=== PATIENT | male | born 1980 | race Caucasian/White ===

== ENCOUNTER 2023-10-08 06:19 | Day surgery (SDC) | payer OTHER, MEDICARE ==
[~2023-10-08] VITALS: Ht 154.9 cm; Wt 52.7 kg
[~2023-10-08 06:19] MED LIST: AMPICILLIN SODIUM 2 GM/NS 0 ML IV ONE; RINGERS SOLUTION,LACTATED 1,000 ML IV ONE
[2023-10-08] MEDS ORDERED: PROPOFOL 1% 20 ML VIAL IVP ONE (06:20)
[2023-10-08] MEDS ORDERED: DEXAMETHASONE SOD PHOS 4 MG/ML VIAL IVP ONE (06:20)
[2023-10-08] MEDS ORDERED: LIDOCAINE/PF 2% 5 ML VIAL IM ONE (06:20)
[2023-10-08] MEDS ORDERED: ONDANSETRON HCL 4 MG/2 ML VIAL IVP ONE (06:20)
[2023-10-08] MEDS ORDERED: ROCURONIUM BROMIDE 10 MG/ML 5 ML VIAL IVP ONE (06:20)
[2023-10-08] MEDS ORDERED: METOCLOPRAMIDE HCL 5 MG/ML 2 ML VIAL IVP ONE (06:20)
[2023-10-08] MEDS ORDERED: SUGAMMADEX SODIUM 200 MG/2 ML VIAL IVP ONE (06:20)
[2023-10-08] MEDS ORDERED: RINGERS SOLUTION,LACTATED 1,000 ML IV ONE (06:30)
[2023-10-08 07:58] LABS: CALCIUM, TOTAL 10.3 mg/dL (8.8-10.5); CREATININE 1.55 mg/dL (0.60-1.30); INR 1.1 (0.9-1.1); PROTHROMBIN TIME 11.1 SEC (9.4-11.6)
[2023-10-08 08:01] LABS: BASOPHILS % (AUTO) 0.1 % (0.0-2.0); EOSINOPHILS % (AUTO) 0 % (1.0-6.0); HEMATOCRIT 45.7 % (41-53); HEMOGLOBIN 15.3 g/dL (13.5-17.5); LYMPHOCYTES # (AUTO) 2.4 K/uL (1.0-4.8); LYMPHOCYTES % (AUTO) 19.8 % (22.0-44.0); MEAN CORPUSCULAR HEMOGLOBIN 30.5 pg (26.0-34.0); MEAN CORPUSCULAR HGB CONC 33.4 G/dL (31.0-37.0); MEAN CORPUSCULAR VOLUME 91 fL (80-100); MONOCYTES # (AUTO) 0.8 K/uL (0.1-1.0); MONOCYTES % (AUTO) 6.8 % (2.0-9.0); NEUTROPHILS # (AUTO) 8.9 K/uL (1.8-7.7); NEUTROPHILS % (AUTO) 73.3 % (40.0-70.0); PLATELET COUNT (AUTO) 253 K/uL (150-450); RED BLOOD CELL COUNT(AUTO) 5.01 MIL/uL (4.50-5.90); RED CELL DISTRIBUTION WIDTH 13.1 % (11.5-14.5); WHITE BLOOD COUNT (AUTO) 12.2 K/uL (4.5-11.0)
[2023-10-08 08:05] LABS: ALBUMIN 4.7 g/dL (3.4-5.0); BILIRUBIN,TOTAL 0.6 mg/dL (0.1-1.0); TOTAL PROTEIN, SERUM 7.9 g/dL (6.4-8.2)
[2023-10-08] MEDS ORDERED: AMPICILLIN SODIUM 2 GM/NS 100 ML IV ONE (09:22)
[2023-10-08] MEDS ORDERED: SODIUM CHLORIDE 0.9% 1,000 ML ONE (10:44)
[2023-10-08 10:56] LABS: GLUCOMETER DEV NAME(LOC) SDS.; GLUCOSE,POINT OF CARE 301 MG/DL (70-110)
[2023-10-08] MEDS: SODIUM CHLORIDE 0.9% 1,000 ML IV ONE (11:31)
[2023-10-08] MEDS ORDERED: MEPERIDINE-PF 25 MG/ML VIAL IVP PRN (11:45)
[2023-10-08] MEDS ORDERED: FentaNYL CITRATE PF 100 MCG/2 ML VIAL IVP PRN (11:45)
[2023-10-08] MEDS ORDERED: ATOR10TA69 PO (12:22)
[2023-10-08] MEDS ORDERED: AMLO2.5T29 PO (12:22)
[2023-10-08] MEDS ORDERED: FAMO20TA8 PO (12:22)
[2023-10-08] MEDS ORDERED: CETI-450 PO (12:25)
[2023-10-08] MEDS ORDERED: LOSA-382 PO (12:25)
[2023-10-08] MEDS ORDERED: ARIP15TA27 PO (12:25)
[2023-10-08] MEDS ORDERED: MIRT-89 PO (12:25)
[2023-10-08] MEDS ORDERED: OXYGEN THERAPY IH SCH (20:00)
== END 2023-10-08 13:05 | disposition short-term general hospital (02) ==
LOC: SURGERY 06:19
PROVIDERS: ATTEND Dentist General Practice
DX: K05.30 Chronic periodontitis, unspecified (principal); K02.9 Dental caries, unspecified; K03.6 Deposits [accretions] on teeth; F41.8 Other specified anxiety disorders; E78.5 Hyperlipidemia, unspecified; N18.30 Chronic kidney disease, stage 3 unspecified; E10.22 Type 1 diabetes mellitus with diabetic chronic kidney disease; Z79.899 Other long term (current) drug therapy; G80.9 Cerebral palsy, unspecified; Z79.01 Long term (current) use of anticoagulants; Z98.890 Other specified postprocedural states
CPT/HCPCS: 41899; 71045; 80053; 82962; 85025; 85610; 85730; 36415; 93005; J0290; J2704; J1100; J3490 ×2; J2765; J2405; Q9967; J7120; J7030